=== PATIENT | male | born 2000 | race Caucasian/White ===

== ENCOUNTER 2022-05-23 18:24 | Emergency (ER) | payer SELFPAY ==
[~2022-05-23] VITALS: Ht 170.2 cm; Wt 68.5 kg
[2022-05-23] MEDS ORDERED: LORAZEPAM 2MG/ML CPJ IM ONE (19:15)
[2022-05-23 20:26] LABS: CHLORIDE 106 mEq/L (98-107)
[2022-05-23 20:30] LABS: BASOPHILS % 0.7 % (0.0-2.0); EOSINOPHILS % 0.6 % (0.0-5.0); HEMATOCRIT. 41.5 % (42.0-52.0); MEAN CORPUSCULAR HEMOGLOBIN 30.3 pg (28.0-32.0); MEAN CORPUSCULAR VOLUME 89.8 fL (80.0-94.0); MEAN PLATELET VOLUME 7.5 fl (7.4-10.4); MONOCYTES % 7.2 % (2.0-8.0); NEUTROPHILS % 70.5 % (40.0-76.0); PLATELET 485 x1000/uL (130-400); RED BLOOD CELL COUNT 4.62 mill/uL (4.7-6.1); RED CELL DISTRIBUTION WIDTH 14.3 % (11.6-14.6)
[2022-05-23 20:34] LABS: ETHANOL BLOOD < 10 mg/dL
[2022-05-24] VITALS: BP 106/58
== END 2022-05-24 04:20 | disposition home or self-care (01) ==
LOC: ER 18:24
DX: F20.9 Schizophrenia, unspecified (principal); Z78.1 Physical restraint status
CPT/HCPCS: 36415; 71045; 80053; 80307; 80320; 80329; 84484; 85025; 96372; 99291; J2060; G0480